=== PATIENT | male | born 2000 | race Caucasian/White ===

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

== ENCOUNTER 2019-09-16 11:55 | Emergency (ER) | payer OTHER ==
[~2019-09-16] VITALS: Ht 177.8 cm; Wt 51.0 kg
[~2019-09-16 11:55] MED LIST: BUTA-153 PO; fioricet
[2019-09-16 12:00] VITALS: BP 105/68
[2019-09-16] MEDS ORDERED: AMOX500T PO (12:23)
[2019-09-16] MEDS ORDERED: TRAM50TA PO (12:23)
[2019-09-16] MEDS ORDERED: MELO7.5T29 PO (12:23)
--- NOTE | 2019-09-16 12:24 | PHYS DOC ---
Past History Past Medical History: No Pertinent History Past Surgical History: No Surgical History Smoking: Cigarettes, Second-hand Alcohol Use: None Drug Use: Marijuana Adult General Chief Complaint Chief Complaint: DENTAL PROBLEM HPI HPI Patient is a 18-year-old male presents with left upper dental pain. This started 4 days ago. Patient tried an [id number] filling to treat a cavity that he already knew he had. There is been no relief with this. No relief with ibuprofen. There is cold sensitivity. Patient rates the pain as a 9 out of 10. No radiation of the discomfort. No fever. No swelling. No foul taste in the mouth.[] Review of Systems Review of Systems Constitutional: Denies fever or chills [] Eyes: Denies change in visual acuity, redness, or eye pain [] HENT: Denies nasal congestion or sore throat, see history of present illness [] Respiratory: Denies cough or shortness of breath [] Cardiovascular: No chest pain or palpitations[] GI: Denies abdominal pain, nausea, vomiting, bloody stools or diarrhea [] : Denies dysuria or hematuria [] Musculoskeletal: Denies back pain or joint pain [] Integument: Denies rash or skin lesions [] Neurologic: Denies headache, focal weakness or sensory changes [] Endocrine: Denies polyuria or polydipsia [] All other systems were reviewed and found to be within normal limits, except as documented in this note. Allergies Allergies Allergies Coded Allergies Type Severity Reaction Last Updated Verified No Known Drug Allergies 03/02/17 No Physical Exam Physical Exam Constitutional: Well developed, well nourished, mild discomfort, non-toxic appearance. [] HENT: Normocephalic, atraumatic, bilateral external ears normal, oropharynx moist, no oral exudates, nose normal. Tooth #15 has tenderness to percussion, there is a temporary filling in place. There is no drainable abscess. Tooth #18 also has a temporary filling in place. There is no tenderness to percussion of tooth #18.[] Eyes: PERRLA, EOMI, conjunctiva normal, no discharge. [] Neck: Normal range of motion, no tenderness, supple, no stridor. No cervical lymphadenopathy[] Cardiovascular:Heart rate regular rhythm, no murmur [] Lungs & Thorax: Bilateral breath sounds clear to auscultation [] Abdomen: Not examined. [] Skin: Warm, dry, no erythema, no rash. [] Back: No tenderness, no CVA tenderness. [] Extremities: No tenderness, no cyanosis, no clubbing, ROM intact, no edema. [] Neurologic: Alert and oriented X 3, normal motor function, normal sensory function, no focal deficits noted. [] Psychologic: Affect normal, judgement normal, mood normal. [] Current Patient Data Vital Signs Vital Signs Date Time Temp Pulse Resp B/P (MAP) Pulse Ox O2 Delivery O2 Flow Rate FiO2 09/16/19 11:55 97.8 61 18 88 EKG EKG [] Radiology/Procedures Radiology/Procedures [] Course & Med Decision Making Course & Med Decision Making Pertinent Labs and Imaging studies reviewed. (See chart for details) ED course: Patient arrived, was placed in bed, and tolerated exam well. Findings and plan were discussed with the patient who voiced understanding. All questions were answered. He was discharged in improved condition. Medical decision making: Patient with dental pain, possible dental abscess. No evidence of Antonio exam Gen. No evidence of a significant deep space infection. No evidence of airway compromise. No peritonsillar abscess[] Dragon Disclaimer Dragon Disclaimer This electronic medical record was generated, in whole or in part, using a voice recognition dictation system. Departure Departure: Impression: Primary Impression: Pain, dental Disposition: HOME, SELF-CARE Condition: IMPROVED Referrals: ARUN MALDONADO (PCP) Patient Instructions: Dental Abscess, Dental Caries Additional Instructions: Follow-up with your regular dentist in 2 days. If you do not have a regular dentist a list of local dental clinics will be provided for you. Take the medication as prescribed. Return to the ER if worsening pain, fever of more than 101, difficulty swallowing or breathing, or any other concerns. Scripts Tramadol Hcl (TRAMADOL HCL) 50 Mg Tablet 50 MG PO PRN Q6HRS PRN for PAIN, #20 TAB Prov: MARY BARAHONA DO 09/16/19 Meloxicam (MELOXICAM) 7.5 Mg Tablet 7.5 MG PO DAILY for PAIN, #20 TAB Prov: MARY BARAHONA DO 09/16/19 Amoxicillin (AMOXICILLIN) 500 Mg Tablet 500 MG PO TID for DENTAL INFECTION for 10 Days, #30 TAB Prov: MARY BARAHONA DO 09/16/19 MARY BARAHONA DO Sep 16, 2019 12:24
== END 2019-09-16 12:27 | disposition home or self-care (01) ==
LOC: ER 11:55
DX: K08.89 Other specified disorders of teeth and supporting structures (principal); Z77.22 Contact with and (suspected) exposure to environmental tobacco smoke (acute) (chronic)
CPT/HCPCS: 99283